=== PATIENT | male | born 1940 | race Caucasian/White ===

== ENCOUNTER 2017-11-15 14:39 | Inpatient (IN) ==
[2017-11-15] MEDS ORDERED: ACETAMINOPHEN 325 MG TABLET PO PRN (17:48)
[2017-11-15] MEDS: CLINDAMYCIN INJ 300 MG in PREMIX 1 EACH IV SCH (18:27)
[2017-11-15 18:35] LABS: Basophils % 0.4 % (0.0-0.8); Eosinophils # 0.3 10*3/uL (0.0-0.87); Eosinophils % 3.9 % (0.00-10.9); Hematocrit 34.5 VOL% (42.0-52.0); Hemoglobin 11.4 GM/DL (14.0-18.0); Immature Granulocytes % 0.4 %; Immature Granulocytes Absolute 0.03 #; Lymphocytes # 1.6 10*3/uL (1.4-4.0); Lymphocytes % 22.4 % (21.2-54.2); Mean Corpuscular Hemoglobin 37 PG (27-34); Mean Corpuscular Volume 110.6 FL (87-102); Mean Platelet Volume 11.3 FL (9.6-12.0); Monocytes # 0.4 10*3/uL (0.11-0.8); Monocytes % 6.2 % (1.7-12.7); Neutrophils # 4.6 10*3/uL (1.4-7.4); Neutrophils % 66.7 % (38.7-73.9); Red Blood Count 3.12 MC/CUMM (3.8-5.5); Red Cell Distribution Width 13.8 % (9.3-17.3); White Blood Count 6.9 T/CUMM (4-12)
[2017-11-15 18:47] LABS: Platelet Count 71 T/CUMM (130-400)
[2017-11-15 18:57] LABS: Calcium 8.5 MG/DL (8.5-10.1); Osmolality,Calculated 288.7 MOS/KG (273-304); Potassium 4.2 MMOL/L (3.5-5.1)
[2017-11-15 19:10] LABS: Alanine Aminotransferase 62 U/L (16-61); Albumin 3.1 G/DL (3.4-5.0); Alkaline Phosphatase 40 U/L (45-117); Aspartate Amino Transferase 49 U/L (0-37); Bilirubin,Direct < 0.100 MG/DL (0.0-0.20); Bilirubin,Indirect 0.3 MG/DL (0.0-1.0); Total Protein 5.9 G/DL (6.4-8.3)
[2017-11-15] MEDS ORDERED: BRIMONIDINE 0.2% OPH SOLN 5 ML BOTTLE BOTH EYES SCH (21:00)
[2017-11-15] MEDS: DOCUSATE SODIUM 100 MG CAPSULE PO SCH (21:27)
[2017-11-16] MEDS: CLINDAMYCIN INJ 300 MG in PREMIX 1 EACH IV SCH ×3 (00:17→12:31)
[2017-11-16 04:53] LABS: Apearance,Urine CLEAR (Clear); Bacteria,Urine Occasional /HPF (Few); Bilirubin,Urine Negative (Negative); Blood, Urine Small mg/dL (Negative); Glucose,Urine (UA) Negative (Negative); Ketones,Urine Negative (Negative); Mucus,Urine Occasional /LPF (Occasional); Nitrite,Urine Negative (Negative); Protein,Urine Negative; RBC,Urine 4 /HPF (0-4); Squamous Epithelial Cell,Urine Occasional /HPF (0-10); Urine Color Straw (Yellow); Urine Specific Gravity 1.012 (1.001-1.035); Urine Urobilinogen < 2.0 EU/DL (0.2-1.0); WBC,Urine 17 /HPF (0-6)
[2017-11-16 05:18] LABS: Basophils % 0.5 % (0.0-0.8); Eosinophils # 0.3 10*3/uL (0.0-0.87); Eosinophils % 4.7 % (0.00-10.9); Hematocrit 31.6 VOL% (42.0-52.0); Hemoglobin 10.7 GM/DL (14.0-18.0); Immature Granulocytes % 0.5 %; Immature Granulocytes Absolute 0.03 #; Lymphocytes # 1.5 10*3/uL (1.4-4.0); Lymphocytes % 25.3 % (21.2-54.2); Mean Corpuscular HGB Conc 33.9 GM/DL (32-36); Mean Corpuscular Hemoglobin 37 PG (27-34); Mean Corpuscular Volume 108.6 FL (87-102); Mean Platelet Volume 11.6 FL (9.6-12.0); Monocytes # 0.4 10*3/uL (0.11-0.8); Monocytes % 6.2 % (1.7-12.7); Neutrophils # 3.8 10*3/uL (1.4-7.4); Neutrophils % 62.8 % (38.7-73.9); Red Blood Count 2.91 MC/CUMM (3.8-5.5); Red Cell Distribution Width 13.5 % (9.3-17.3)
[2017-11-16 05:23] LABS: Platelet Count 58 T/CUMM (130-400)
[2017-11-16 05:29] LABS: INR 1.1; PT Patient Result 11.2 SECS
[2017-11-16 05:48] LABS: Hypochromasia 1+; Ovalocytes Slight; Platelet Estimate Decreased
[2017-11-16 05:55] LABS: Osmolality,Calculated 289.7 MOS/KG (273-304); Potassium 3.8 MMOL/L (3.5-5.1); Risk Ratio 4.64; Thyroid Stimulating Hormone 9.47 uIU/ml (0.358-3.74); VLDL CHOLESTEROL 39.2 MG/DL
[2017-11-16] MEDS ORDERED: LIDOCAINE 1%/EPI INJ 20 ML VIAL ONE (08:35)
[2017-11-16] MEDS ORDERED: BUPIVACAINE MPF 0.25% /EPI 30 ML VIAL ONE (08:35)
[2017-11-16] MEDS: PROPRANOLOL 20 MG TABLET PO SCH (08:50)
[2017-11-16] MEDS: predniSONE 5 MG TABLET PO SCH (08:50)
[2017-11-16] MEDS: PANTOPRAZOLE 40 MG TABLET PO SCH (08:50)
[2017-11-16] MEDS: FOLIC ACID 1 MG TABLET PO SCH (08:50)
[2017-11-16] MEDS: DOCUSATE SODIUM 100 MG CAPSULE PO SCH ×2 (08:50→21:26)
[2017-11-16] MEDS ORDERED: PANTOPRAZOLE 40 MG TABLET PO SCH (09:00)
[2017-11-16] MEDS ORDERED: MIDAZOLAM 2 MG/2 ML VIAL ONE (09:27)
[2017-11-16] MEDS ORDERED: PROPOFOL 200 MG/20 ML VIAL IV ONE (09:27)
[2017-11-16] MEDS ORDERED: fentaNYL 100 MCG/2 ML VIAL ONE (09:27)
[2017-11-16] MEDS ORDERED: LABETALOL 20 MG/4 ML SYRINGE IV ONE (09:27)
[2017-11-16] MEDS ORDERED: MAGNESIUM SULF RIDER 2 GM in PREMIX 1 EACH IV ONE (15:14)
[2017-11-16] MEDS: VANCOMYCIN INJ 1,000 MG in SODIUM CHLORIDE 0.9% 250 ML IV SCH (18:32)
[2017-11-17 05:48] LABS: Basophils % 0.5 % (0.0-0.8); Eosinophils # 0.2 10*3/uL (0.0-0.87); Eosinophils % 5.7 % (0.00-10.9); Hemoglobin 11.3 GM/DL (14.0-18.0); Immature Granulocytes Absolute 0.04 #; Lymphocytes # 1.3 10*3/uL (1.4-4.0); Lymphocytes % 32.7 % (21.2-54.2); Mean Corpuscular HGB Conc 33.2 GM/DL (32-36); Mean Corpuscular Hemoglobin 36 PG (27-34); Monocytes # 0.3 10*3/uL (0.11-0.8); Monocytes % 7.7 % (1.7-12.7); Neutrophils # 2.1 10*3/uL (1.4-7.4); Neutrophils % 52.4 % (38.7-73.9); Platelet Count 59 T/CUMM (130-400); Red Blood Count 3.12 MC/CUMM (3.8-5.5); Red Cell Distribution Width 13.6 % (9.3-17.3)
[2017-11-17 06:18] LABS: Calcium 7.9 MG/DL (8.5-10.1); Osmolality,Calculated 287.8 MOS/KG (273-304); Potassium 4.4 MMOL/L (3.5-5.1)
[2017-11-17] MEDS: VANCOMYCIN INJ 1,000 MG in SODIUM CHLORIDE 0.9% 250 ML IV SCH (06:30)
[2017-11-17 08:01] LABS: Hypochromasia 1+; Macrocytosis 1+; Polychromasia Slight
[2017-11-17] MEDS ORDERED: BACITRACIN OINT 0.9 GM PACK TOP SCH (09:00)
[2017-11-17] MEDS: predniSONE 5 MG TABLET PO SCH (09:01)
[2017-11-17] MEDS: DOCUSATE SODIUM 100 MG CAPSULE PO SCH (09:01)
[2017-11-17] MEDS: PROPRANOLOL 20 MG TABLET PO SCH (09:01)
[2017-11-17] MEDS: PANTOPRAZOLE 40 MG TABLET PO SCH (09:01)
[2017-11-17] MEDS: FOLIC ACID 1 MG TABLET PO SCH (09:01)
[2017-11-17 11:57] VITALS: BP 176/92
[2017-11-21] MEDS ORDERED: METHOTREXATE 2.5 MG TABLET PO SCH (09:00)
== END 2017-11-17 12:52 | disposition home or self-care (01) | DRG 603 ==
LOC: N.2E 14:57 → SUATTDRO 14:57
PROVIDERS: ADMIT Internal Medicine; ATTEND Internal Medicine

== ENCOUNTER 2019-05-04 20:31 | Inpatient (IN) ==
[2019-05-04] MEDS ORDERED: SODIUM CHLORIDE 0.9% 500 ML IV STA (21:05)
[2019-05-04] MEDS ORDERED: ACETAMINOPHEN 500 MG TABLET ONE (21:07)
[2019-05-04 21:19] LABS: Basophils % 0.1 % (0.0-0.8); Eosinophils % 0.5 % (0.00-10.9); Hematocrit 34.9 VOL% (42.0-52.0); Hemoglobin 11.8 GM/DL (14.0-18.0); Immature Granulocytes % 0.5 %; Immature Granulocytes Absolute 0.04 #; Lymphocytes # 0.7 10*3/uL (1.4-4.0); Lymphocytes % 8.4 % (21.2-54.2); Mean Corpuscular HGB Conc 33.8 GM/DL (32-36); Mean Corpuscular Volume 106.4 FL (87-102); Mean Platelet Volume 11.8 FL (9.6-12.0); Monocytes % 7.8 % (1.7-12.7); Neutrophils % 82.7 % (38.7-73.9); Platelet Count 82 T/CUMM (130-400); Red Blood Count 3.28 MC/CUMM (3.8-5.5); Red Cell Distribution Width 12.4 % (9.3-17.3); White Blood Count 8.4 T/CUMM (4-12)
[2019-05-04 21:25] LABS: PT Patient Result 11.2 SECS (9.6-12.2)
[2019-05-04 21:32] LABS: Alanine Aminotransferase 23 U/L (16-61); Albumin 3.3 G/DL (3.4-5.0); Alkaline Phosphatase 43 U/L (45-117); Aspartate Amino Transferase 33 U/L (0-37); Blood Urea Nitrogen 23 MG/DL (7-18); Calcium 7.9 MG/DL (8.5-10.1); Estimated Glom Filtration Rate 37 ML/MIN; Glucose 165 MG/DL (74-106); Osmolality,Calculated 277.1 MOS/KG (273-304); Total Protein 6.9 G/DL (6.4-8.3)
[2019-05-04] MEDS ORDERED: ACETAMINOPHEN 500 MG TABLET PO STA (21:48)
[2019-05-04 22:32] LABS: Apearance,Urine CLEAR (Clear); Bilirubin,Urine Negative (Negative); Blood, Urine Negative (Negative); Glucose,Urine (UA) Negative (Negative); Ketones,Urine Negative (Negative); Mucus,Urine Occasional /LPF (Occasional); Nitrite,Urine Negative (Negative); Protein,Urine Negative; RBC,Urine 7 /HPF (0-4); Urine Color Yellow (Yellow); Urine Urobilinogen < 2.0 EU/DL (0.2-1.0); WBC,Urine 44 /HPF (0-6)
[2019-05-04] MEDS ORDERED: PIPERACILLIN/TAZOBACTAM 3,375 MG in SODIUM CHLORIDE 0.9% 100 ML IV STA (22:50)
[2019-05-05] MEDS ORDERED: DOCUSATE SODIUM 100 MG CAPSULE PO PRN (02:18)
[2019-05-05] MEDS: SODIUM CHLORIDE 0.9% 1,000 ML IV SCH ×2 (02:53→16:20)
[2019-05-05 03:01] LABS: Basophils % 0.1 % (0.0-0.8); Eosinophils % 0.2 % (0.00-10.9); Hematocrit 29.9 VOL% (42.0-52.0); Hemoglobin 9.8 GM/DL (14.0-18.0); Immature Granulocytes % 0.4 %; Immature Granulocytes Absolute 0.04 #; Lymphocytes # 1.3 10*3/uL (1.4-4.0); Lymphocytes % 12.9 % (21.2-54.2); Mean Corpuscular HGB Conc 32.8 GM/DL (32-36); Mean Corpuscular Volume 107.2 FL (87-102); Mean Platelet Volume 11.2 FL (9.6-12.0); Monocytes % 10.4 % (1.7-12.7); Platelet Count 72 T/CUMM (130-400); Red Blood Count 2.79 MC/CUMM (3.8-5.5); Red Cell Distribution Width 12.4 % (9.3-17.3); White Blood Count 9.7 T/CUMM (4-12)
[2019-05-05 03:20] LABS: Calcium 7.5 MG/DL (8.5-10.1); Osmolality,Calculated 284.4 MOS/KG (273-304)
[2019-05-05] MEDS ORDERED: cefTRIAXone 1,000 MG in SYRINGE 1 EACH IV SCH (06:00)
[2019-05-05] MEDS ORDERED: PROPRANOLOL 10 MG TABLET PO SCH (09:00)
[2019-05-05] MEDS: ONDANSETRON 4 MG/2 ML VIAL IV PRN (09:13)
[2019-05-05] MEDS: CHOLECALCIFEROL 1,000 UNIT TABLET PO SCH (09:13)
[2019-05-05] MEDS: CALCIUM (CARBONATE)/VITAMIN D 600 MG-400 UNIT TABLET PO SCH ×2 (09:13→20:55)
[2019-05-06] MEDS: ACETAMINOPHEN 325 MG TABLET PO PRN (00:01)
[2019-05-06 05:02] LABS: Basophils % 0.2 % (0.0-0.8); Eosinophils # 0.1 10*3/uL (0.0-0.87); Eosinophils % 2.4 % (0.00-10.9); Hematocrit 26.5 VOL% (42.0-52.0); Hemoglobin 8.8 GM/DL (14.0-18.0); Immature Granulocytes % 0.5 %; Immature Granulocytes Absolute 0.03 #; Lymphocytes # 1.2 10*3/uL (1.4-4.0); Lymphocytes % 20.1 % (21.2-54.2); Mean Corpuscular HGB Conc 33.2 GM/DL (32-36); Mean Corpuscular Volume 106.4 FL (87-102); Mean Platelet Volume 12.1 FL (9.6-12.0); Monocytes % 9.8 % (1.7-12.7); Platelet Count 62 T/CUMM (130-400); Red Blood Count 2.49 MC/CUMM (3.8-5.5); Red Cell Distribution Width 12.5 % (9.3-17.3); White Blood Count 5.9 T/CUMM (4-12)
[2019-05-06 05:23] LABS: Calcium 7.9 MG/DL (8.5-10.1); Osmolality,Calculated 279.7 MOS/KG (273-304)
[2019-05-06 05:33] LABS: Band Neutrophils 3 % (0-10); Eosinophils 1 % (0-10); Lymphocytes 28 % (20-55); Segmented Neutrophils 62 % (50-85); Total Cells Counted 100
[2019-05-06 05:34] LABS: Platelet Estimate Decreased
[2019-05-06] MEDS: SODIUM CHLORIDE 0.9% 1,000 ML IV SCH ×2 (05:42→21:08)
[2019-05-06] MEDS: ONDANSETRON 4 MG/2 ML VIAL IV PRN ×2 (08:03→12:31)
[2019-05-06] MEDS: CALCIUM (CARBONATE)/VITAMIN D 600 MG-400 UNIT TABLET PO SCH ×2 (09:14→20:50)
[2019-05-06] MEDS: PROPRANOLOL 10 MG TABLET PO SCH (09:14)
[2019-05-06] MEDS: cefTRIAXone 2,000 MG in SYRINGE 1 EACH IV SCH (09:15)
[2019-05-06] MEDS: CHOLECALCIFEROL 1,000 UNIT TABLET PO SCH (09:15)
[2019-05-06] MEDS ORDERED: VANCOMYCIN INJ 1,000 MG in SODIUM CHLORIDE 0.9% 250 ML IV SCH (09:30)
[2019-05-07 05:26] LABS: Basophils % 0.2 % (0.0-0.8); Eosinophils # 0.1 10*3/uL (0.0-0.87); Hematocrit 26.7 VOL% (42.0-52.0); Hemoglobin 8.7 GM/DL (14.0-18.0); Immature Granulocytes % 0.4 %; Immature Granulocytes Absolute 0.02 #; Lymphocytes # 1.3 10*3/uL (1.4-4.0); Lymphocytes % 25.6 % (21.2-54.2); Mean Corpuscular HGB Conc 32.6 GM/DL (32-36); Mean Platelet Volume 11.6 FL (9.6-12.0); Monocytes % 11.9 % (1.7-12.7); Neutrophils % 59.9 % (38.7-73.9); Platelet Count 72 T/CUMM (130-400); Red Blood Count 2.52 MC/CUMM (3.8-5.5); Red Cell Distribution Width 12.3 % (9.3-17.3); White Blood Count 5.1 T/CUMM (4-12)
[2019-05-07 05:47] LABS: Calcium 7.9 MG/DL (8.5-10.1); Osmolality,Calculated 280.3 MOS/KG (273-304)
[2019-05-07] MEDS: ONDANSETRON 4 MG/2 ML VIAL IV PRN ×3 (07:28→21:28)
[2019-05-07] MEDS: CHOLECALCIFEROL 1,000 UNIT TABLET PO SCH (08:45)
[2019-05-07] MEDS: PROPRANOLOL 10 MG TABLET PO SCH (08:46)
[2019-05-07] MEDS: cefTRIAXone 2,000 MG in SYRINGE 1 EACH IV SCH (08:46)
[2019-05-07] MEDS ORDERED: MORPHINE 4 MG/1 ML VIAL IV ONE (11:04)
[2019-05-07] MEDS ORDERED: ONDANSETRON 4 MG/2 ML VIAL IV ONE (11:06)
[2019-05-07] MEDS: CALCIUM (CARBONATE)/VITAMIN D 600 MG-400 UNIT TABLET PO SCH ×2 (11:24→20:45)
[2019-05-07] MEDS: SODIUM CHLORIDE 0.9% 1,000 ML IV SCH (11:25)
[2019-05-07] MEDS: POLYETHYLENE GLYCOL POWDER 17 GM PACK PO SCH (11:25)
[2019-05-07] MEDS: DOCUSATE SODIUM 100 MG CAPSULE PO SCH (20:45)
[2019-05-08] MEDS: ONDANSETRON 4 MG/2 ML VIAL IV PRN ×5 (03:30→23:02)
[2019-05-08 05:54] LABS: Basophils % 0.3 % (0.0-0.8); Eosinophils # 0.3 10*3/uL (0.0-0.87); Eosinophils % 4.6 % (0.00-10.9); Hematocrit 27.9 VOL% (42.0-52.0); Hemoglobin 9.1 GM/DL (14.0-18.0); Immature Granulocytes % 0.5 %; Immature Granulocytes Absolute 0.03 #; Lymphocytes # 1.6 10*3/uL (1.4-4.0); Lymphocytes % 26.9 % (21.2-54.2); Mean Corpuscular HGB Conc 32.6 GM/DL (32-36); Mean Corpuscular Volume 105.7 FL (87-102); Mean Platelet Volume 11.9 FL (9.6-12.0); Monocytes % 10.7 % (1.7-12.7); Platelet Count 84 T/CUMM (130-400); Red Blood Count 2.64 MC/CUMM (3.8-5.5); Red Cell Distribution Width 12.5 % (9.3-17.3); White Blood Count 5.8 T/CUMM (4-12)
[2019-05-08 06:24] LABS: Platelet Estimate Decreased
[2019-05-08] MEDS: CALCIUM (CARBONATE)/VITAMIN D 600 MG-400 UNIT TABLET PO SCH ×2 (08:52→21:08)
[2019-05-08] MEDS: DOCUSATE SODIUM 100 MG CAPSULE PO SCH ×2 (08:52→21:08)
[2019-05-08] MEDS: CHOLECALCIFEROL 1,000 UNIT TABLET PO SCH (08:52)
[2019-05-08] MEDS: PROPRANOLOL 10 MG TABLET PO SCH (08:52)
[2019-05-08] MEDS: POLYETHYLENE GLYCOL POWDER 17 GM PACK PO SCH (08:52)
[2019-05-08] MEDS: cefTRIAXone 2,000 MG in SYRINGE 1 EACH IV SCH (10:08)
[2019-05-09] MEDS: ONDANSETRON 4 MG/2 ML VIAL IV PRN ×4 (03:08→16:46)
[2019-05-09 04:59] LABS: Basophils % 0.2 % (0.0-0.8); Eosinophils # 0.2 10*3/uL (0.0-0.87); Eosinophils % 4.7 % (0.00-10.9); Hematocrit 27.2 VOL% (42.0-52.0); Hemoglobin 9.3 GM/DL (14.0-18.0); Immature Granulocytes Absolute 0.05 #; Lymphocytes # 1.4 10*3/uL (1.4-4.0); Lymphocytes % 27.6 % (21.2-54.2); Mean Corpuscular HGB Conc 34.2 GM/DL (32-36); Mean Corpuscular Volume 103.8 FL (87-102); Mean Platelet Volume 11.8 FL (9.6-12.0); Monocytes % 10.8 % (1.7-12.7); Neutrophils % 55.7 % (38.7-73.9); Red Blood Count 2.62 MC/CUMM (3.8-5.5); Red Cell Distribution Width 12.3 % (9.3-17.3); White Blood Count 5.1 T/CUMM (4-12)
[2019-05-09 05:00] LABS: Platelet Count 95 T/CUMM (130-400)
[2019-05-09 05:16] LABS: Eosinophils 5 % (0-10); Hypochromasia 1+; Lymphocytes 28 % (20-55); Ovalocytes Slight; Platelet Estimate Decreased; Segmented Neutrophils 61 % (50-85); Total Cells Counted 100
[2019-05-09 05:29] LABS: Calcium 8.2 MG/DL (8.5-10.1); Osmolality,Calculated 280.4 MOS/KG (273-304)
[2019-05-09] MEDS: cefTRIAXone 2,000 MG in SYRINGE 1 EACH IV SCH (08:01)
[2019-05-09] MEDS: CALCIUM (CARBONATE)/VITAMIN D 600 MG-400 UNIT TABLET PO SCH ×2 (08:02→21:19)
[2019-05-09] MEDS: CHOLECALCIFEROL 1,000 UNIT TABLET PO SCH (08:02)
[2019-05-09] MEDS: DOCUSATE SODIUM 100 MG CAPSULE PO SCH ×2 (08:03→21:19)
[2019-05-09] MEDS: PROPRANOLOL 10 MG TABLET PO SCH (08:03)
[2019-05-09] MEDS: POLYETHYLENE GLYCOL POWDER 17 GM PACK PO SCH (11:45)
[2019-05-10] MEDS: ONDANSETRON 4 MG/2 ML VIAL IV PRN ×2 (02:38→08:31)
[2019-05-10 05:41] LABS: Basophils % 0.3 % (0.0-0.8); Eosinophils # 0.3 10*3/uL (0.0-0.87); Eosinophils % 4.1 % (0.00-10.9); Hematocrit 27.5 VOL% (42.0-52.0); Hemoglobin 9.3 GM/DL (14.0-18.0); Immature Granulocytes % 1.1 %; Immature Granulocytes Absolute 0.07 #; Lymphocytes # 2.2 10*3/uL (1.4-4.0); Lymphocytes % 32.9 % (21.2-54.2); Mean Corpuscular HGB Conc 33.8 GM/DL (32-36); Mean Platelet Volume 11.7 FL (9.6-12.0); Monocytes % 9.8 % (1.7-12.7); Neutrophils % 51.8 % (38.7-73.9); Platelet Count 104 T/CUMM (130-400); Red Blood Count 2.67 MC/CUMM (3.8-5.5); Red Cell Distribution Width 12.2 % (9.3-17.3); White Blood Count 6.6 T/CUMM (4-12)
[2019-05-10 05:46] LABS: INR 1.1; PT Patient Result 12.1 SECS (9.6-12.2)
[2019-05-10 06:02] LABS: Eosinophils 4 % (0-10); Lymphocytes 24 % (20-55); Platelet Estimate Decreased; Segmented Neutrophils 65 % (50-85); Total Cells Counted 100
[2019-05-10 06:15] LABS: Calcium 8.6 MG/DL (8.5-10.1); Osmolality,Calculated 279.3 MOS/KG (273-304)
[2019-05-10] MEDS: CALCIUM (CARBONATE)/VITAMIN D 600 MG-400 UNIT TABLET PO SCH ×2 (08:31→21:39)
[2019-05-10] MEDS: CHOLECALCIFEROL 1,000 UNIT TABLET PO SCH (08:31)
[2019-05-10] MEDS: cefTRIAXone 2,000 MG in SYRINGE 1 EACH IV SCH (08:31)
[2019-05-10] MEDS: PROPRANOLOL 10 MG TABLET PO SCH (08:31)
[2019-05-10] MEDS: DOCUSATE SODIUM 100 MG CAPSULE PO SCH ×2 (08:31→23:35)
[2019-05-10] MEDS: POLYETHYLENE GLYCOL POWDER 17 GM PACK PO SCH (08:40)
[2019-05-10] MEDS: amLODIPine 5 MG TABLET PO SCH (10:35)
[2019-05-10] MEDS: LIDOCAINE 5% PATCH TRANSDERM SCH (12:48)
[2019-05-10] MEDS: fentaNYL 12 MCG/HR PATCH TRANSDERM SCH (12:48)
[2019-05-10] MEDS: ALUMINUM/MAGNES/SIMETH MAX STR 30 ML UDCUP PO SCH ×4 (12:48→23:51)
[2019-05-11] MEDS: LIDOCAINE 5% PATCH TRANSDERM SCH (10:21)
[2019-05-11] MEDS: cefTRIAXone 2,000 MG in SYRINGE 1 EACH IV SCH (10:23)
[2019-05-11] MEDS ORDERED: PROPOFOL 200 MG/20 ML VIAL IV ONE (14:16)
[2019-05-11] MEDS ORDERED: ETOMIDATE 40 MG/20 ML VIAL IV ONE (14:17)
[2019-05-11] MEDS: CHOLECALCIFEROL 1,000 UNIT TABLET PO SCH (15:29)
[2019-05-11] MEDS: CALCIUM (CARBONATE)/VITAMIN D 600 MG-400 UNIT TABLET PO SCH ×2 (15:29→21:40)
[2019-05-11] MEDS: amLODIPine 5 MG TABLET PO SCH (15:29)
[2019-05-11] MEDS: PROPRANOLOL 10 MG TABLET PO SCH (15:29)
[2019-05-11] MEDS ORDERED: SODIUM CHLORIDE 0.9% 1,000 ML IV SCH (15:30)
[2019-05-11] MEDS: DOCUSATE SODIUM 100 MG CAPSULE PO SCH (15:30)
[2019-05-11] MEDS: POLYETHYLENE GLYCOL POWDER 17 GM PACK PO SCH (15:30)
[2019-05-12] MEDS: CHOLECALCIFEROL 1,000 UNIT TABLET PO SCH (08:53)
[2019-05-12] MEDS: PROPRANOLOL 10 MG TABLET PO SCH (08:53)
[2019-05-12] MEDS: amLODIPine 5 MG TABLET PO SCH (08:53)
[2019-05-12] MEDS: CALCIUM (CARBONATE)/VITAMIN D 600 MG-400 UNIT TABLET PO SCH ×2 (08:53→20:58)
[2019-05-12] MEDS: cefTRIAXone 2,000 MG in SYRINGE 1 EACH IV SCH (08:54)
[2019-05-12] MEDS: LIDOCAINE 5% PATCH TRANSDERM SCH (08:57)
[2019-05-12] MEDS: POLYETHYLENE GLYCOL POWDER 17 GM PACK PO SCH (09:01)
[2019-05-12] MEDS: DOCUSATE SODIUM 100 MG CAPSULE PO SCH ×3 (09:01→20:59)
[2019-05-13] MEDS: ACETAMINOPHEN 325 MG TABLET PO PRN (05:26)
[2019-05-13 06:36] LABS: Basophils % 0.3 % (0.0-0.8); Eosinophils # 0.3 10*3/uL (0.0-0.87); Hematocrit 30.5 VOL% (42.0-52.0); Hemoglobin 10.2 GM/DL (14.0-18.0); Immature Granulocytes % 0.8 %; Immature Granulocytes Absolute 0.05 #; Lymphocytes # 2.7 10*3/uL (1.4-4.0); Lymphocytes % 41.5 % (21.2-54.2); Mean Corpuscular HGB Conc 33.4 GM/DL (32-36); Mean Corpuscular Volume 104.5 FL (87-102); Mean Platelet Volume 11.4 FL (9.6-12.0); Monocytes % 10.5 % (1.7-12.7); Neutrophils % 42.9 % (38.7-73.9); Platelet Count 113 T/CUMM (130-400); Red Blood Count 2.92 MC/CUMM (3.8-5.5); White Blood Count 6.6 T/CUMM (4-12)
[2019-05-13 06:57] LABS: Calcium 8.5 MG/DL (8.5-10.1); Osmolality,Calculated 273.8 MOS/KG (273-304)
[2019-05-13 07:02] LABS: Anisocytosis 2+; Band Neutrophils 1 % (0-10); Eosinophils 5 % (0-10); Lymphocytes 42 % (20-55); Macrocytosis 2+; Nucleated Red Blood Cells 0 (0-5); Platelet Estimate Decreased; Polychromasia 1+; Segmented Neutrophils 42 % (50-85); Total Cells Counted 100
[2019-05-13] MEDS: cefTRIAXone 2,000 MG in SYRINGE 1 EACH IV SCH (08:37)
[2019-05-13] MEDS: LIDOCAINE 5% PATCH TRANSDERM SCH (08:38)
[2019-05-13] MEDS: amLODIPine 5 MG TABLET PO SCH (08:38)
[2019-05-13] MEDS: CHOLECALCIFEROL 1,000 UNIT TABLET PO SCH (08:38)
[2019-05-13] MEDS: CALCIUM (CARBONATE)/VITAMIN D 600 MG-400 UNIT TABLET PO SCH (08:38)
[2019-05-13] MEDS: PROPRANOLOL 10 MG TABLET PO SCH (08:38)
[2019-05-13] MEDS: POLYETHYLENE GLYCOL POWDER 17 GM PACK PO SCH (08:39)
[2019-05-13] MEDS: DOCUSATE SODIUM 100 MG CAPSULE PO SCH (08:39)
[2019-05-13 11:48] VITALS: BP 130/79
[2019-05-13] MEDS: fentaNYL 12 MCG/HR PATCH TRANSDERM SCH (11:48)
== END 2019-05-13 13:49 | disposition home health service (06) | DRG 871 ==
LOC: EDBD → EDUNIT# → N.ED 20:31 → N.EDINP 05-05 00:18 → SUATTDRO 05-05 00:18 → N.2E 05-05 00:59
PROVIDERS: ADMIT Internal Medicine; ATTEND Internal Medicine

== ENCOUNTER 2021-06-10 16:16 | Inpatient (IN) ==
[2021-06-10] MEDS ORDERED: SODIUM CHLORIDE 0.9% 1,000 ML IV STA (17:23)
[2021-06-10 18:04] LABS: Basophils % 0.2 % (0.0-0.8); Eosinophils # 0.1 10*3/uL (0.0-0.87); Eosinophils % 0.9 % (0.00-10.9); Hematocrit 22.7 VOL% (42.0-52.0); Hemoglobin 7.1 GM/DL (14.0-18.0); Immature Granulocytes % 0.9 %; Immature Granulocytes Absolute 0.06 #; Lymphocytes % 15.2 % (21.2-54.2); Mean Corpuscular HGB Conc 31.3 GM/DL (32-36); Mean Corpuscular Volume 105.6 FL (87-102); Mean Platelet Volume 11.9 FL (9.6-12.0); Monocytes % 6.7 % (1.7-12.7); Neutrophils % 76.1 % (38.7-73.9); Platelet Count 91 T/CUMM (130-400); Red Blood Count 2.15 MC/CUMM (3.8-5.5); Red Cell Distribution Width 14.9 % (9.3-17.3); White Blood Count 6.5 T/CUMM (4-12)
[2021-06-10 18:19] LABS: Albumin 2.7 G/DL (3.4-5.0); Bilirubin,Total 0.4 MG/DL (0.20-1.00); Calcium 8.2 MG/DL (8.5-10.1); Osmolality,Calculated 277.8 MOS/KG (273-304); Potassium 4.2 MMOL/L (3.5-5.1); Total Protein 6.5 G/DL (6.4-8.2)
[2021-06-10 19:28] LABS: Bilirubin,Urine Negative (Negative); Blood, Urine Negative (Negative); Glucose,Urine (UA) Negative (Negative); Ketones,Urine Negative (Negative); Mucus,Urine Occasional /LPF (Occasional); Nitrite,Urine Negative (Negative); Protein,Urine Negative; RBC,Urine 6 /HPF (0-4); Squamous Epithelial Cell,Urine Occasional /HPF (0-10); Urine Appearance CLEAR (Clear); Urine Color Yellow (Yellow); Urine Urobilinogen < 2.0 EU/DL (<2.0)
[2021-06-10] MEDS ORDERED: AZITHROMYCIN INJ 500 MG in SODIUM CHLORIDE 0.9% 250 ML IV ONE (19:52)
[2021-06-10] MEDS ORDERED: SODIUM CHLORIDE 0.9% 1,000 ML IV PRN (19:59)
[2021-06-10] MEDS ORDERED: GLUCAGON 1 MG VIAL IM PRN (20:07)
[2021-06-10] MEDS ORDERED: DEXTROSE 10% 25 GM/250 ML BAG IV PRN (20:10)
[2021-06-10 22:05] LABS: Basophils % 0.2 % (0.0-0.8); Eosinophils % 0.9 % (0.00-10.9); Hematocrit 29.3 VOL% (42.0-52.0); Immature Granulocytes % 0.6 %; Immature Granulocytes Absolute 0.03 #; Lymphocytes # 1.1 10*3/uL (1.4-4.0); Lymphocytes % 22.7 % (21.2-54.2); Mean Corpuscular HGB Conc 30.7 GM/DL (32-36); Mean Platelet Volume 11.6 FL (9.6-12.0); Monocytes % 7.3 % (1.7-12.7); Neutrophils % 68.3 % (38.7-73.9); Platelet Count 69 T/CUMM (130-400); Red Blood Count 2.79 MC/CUMM (3.8-5.5); Red Cell Distribution Width 14.8 % (9.3-17.3); White Blood Count 4.6 T/CUMM (4-12)
[2021-06-10 22:22] LABS: Albumin 2.5 G/DL (3.4-5.0); Bilirubin,Total 0.4 MG/DL (0.20-1.00); Calcium 7.5 MG/DL (8.5-10.1); Osmolality,Calculated 275.8 MOS/KG (273-304); Potassium 4.3 MMOL/L (3.5-5.1)
[2021-06-10 22:26] LABS: Folate 22.42 NG/ML (5.38-24.0); Vitamin B12 892 PG/ML (211-911)
[2021-06-10 22:46] LABS: Polychromasia 1+
[2021-06-10 22:47] LABS: Anisocytosis 1+; Macrocytosis 1+; Platelet Estimate Decreased
[2021-06-10 23:16] LABS: Sedimentation Rate-Westergren 94 MM/HR (0-20)
[2021-06-10] MEDS: FAMOTIDINE 20 MG TABLET PO SCH (23:54)
[2021-06-10] MEDS: ASCORBIC ACID 500 MG TABLET PO SCH (23:54)
[2021-06-10] MEDS: TERAZOSIN 1 MG CAPSULE PO SCH (23:54)
[2021-06-11] MEDS: SODIUM CHLORIDE 0.9% 1,000 ML IV SCH
[2021-06-11] MEDS: BRIMONIDINE 0.2% OPH SOLN 5 ML BOTTLE BOTH EYES SCH ×3 (01:01→21:46)
[2021-06-11] MEDS: methylPREDNISolone SOD SUC 40 MG/1 ML VIAL IV SCH ×5 (05:00→23:13)
[2021-06-11 05:17] LABS: Basophils % 0.3 % (0.0-0.8); Eosinophils % 0.8 % (0.00-10.9); Hematocrit 31.4 VOL% (42.0-52.0); Hemoglobin 9.8 GM/DL (14.0-18.0); Immature Granulocytes % 0.5 %; Immature Granulocytes Absolute 0.02 #; Lymphocytes % 26.5 % (21.2-54.2); Mean Corpuscular HGB Conc 31.2 GM/DL (32-36); Mean Corpuscular Volume 103.3 FL (87-102); Mean Platelet Volume 11.5 FL (9.6-12.0); Monocytes % 6.9 % (1.7-12.7); Platelet Count 64 T/CUMM (130-400); Red Blood Count 3.04 MC/CUMM (3.8-5.5); Red Cell Distribution Width 15.7 % (9.3-17.3); White Blood Count 3.8 T/CUMM (4-12)
[2021-06-11 05:35] LABS: Hypochromia 1+; Microcytosis Slight; Platelet Estimate Decreased
[2021-06-11 05:46] LABS: % Iron Saturation 9.2 % (18-50); Ferritin 146.2 ng/mL (26-388); Free T4 (Free Thyroxine) 1.31 NG/DL (0.76-1.46); Thyroid Stimulating Hormone 0.999 uIU/ml (0.358-3.74)
[2021-06-11 08:18] LABS: Hematocrit 31.7 VOL% (42.0-52.0); Hemoglobin 9.9 GM/DL (14.0-18.0)
[2021-06-11] MEDS ORDERED: CHOLECALCIFEROL 1,000 UNIT TABLET PO SCH (09:00)
[2021-06-11] MEDS: FAMOTIDINE 20 MG TABLET PO SCH ×2 (11:17→21:45)
[2021-06-11] MEDS: cefTRIAXone 1,000 MG in SODIUM CHLORIDE 0.9% 100 ML IV SCH (11:17)
[2021-06-11] MEDS: PANTOPRAZOLE 40 MG VIAL IV SCH ×3 (11:17→21:44)
[2021-06-11] MEDS: PROPRANOLOL 40 MG TABLET PO SCH (11:17)
[2021-06-11] MEDS: ASCORBIC ACID 500 MG TABLET PO SCH ×2 (11:18→21:45)
[2021-06-11] MEDS: CETIRIZINE 10 MG TABLET PO SCH (11:18)
[2021-06-11] MEDS: ZINC GLUCONATE 50 MG TABLET PO SCH (11:18)
[2021-06-11] MEDS: LACTATED RINGERS 1,000 ML IV SCH (13:42)
[2021-06-11 15:41] LABS: Hematocrit 31.1 VOL% (42.0-52.0); Hemoglobin 9.9 GM/DL (14.0-18.0)
[2021-06-11] MEDS ORDERED: INFLUENZA VIRUS VACCINE 0.5 ML SYRINGE IM ONE (16:55)
[2021-06-11] MEDS: IVERMECTIN 3 MG TABLET PO SCH (18:17)
[2021-06-11] MEDS: AZITHROMYCIN INJ 500 MG in SODIUM CHLORIDE 0.9% 250 ML IV SCH (21:44)
[2021-06-11] MEDS: CHOLECALCIFEROL 5,000 UNIT TABLET PO SCH (21:45)
[2021-06-11] MEDS: TERAZOSIN 1 MG CAPSULE PO SCH (21:45)
[2021-06-11] MEDS: APIXABAN 2.5 MG TABLET PO SCH ×2 (21:45→23:13)
[2021-06-11] MEDS: CALCIUM (CARBONATE)/VITAMIN D 600 MG-400 UNIT TABLET PO SCH ×2 (21:45→21:49)
[2021-06-11] MEDS: PRIMIDONE 50 MG TABLET PO SCH (21:46)
[2021-06-12] MEDS: PRIMIDONE 50 MG TABLET PO SCH ×2 (02:16→20:53)
[2021-06-12] MEDS: LACTATED RINGERS 1,000 ML IV SCH ×3 (04:18→16:45)
[2021-06-12 06:05] LABS: Hematocrit 29.3 VOL% (42.0-52.0); Hemoglobin 9.4 GM/DL (14.0-18.0); Immature Granulocytes % 0.3 %; Immature Granulocytes Absolute 0.01 #; Lymphocytes # 0.7 10*3/uL (1.4-4.0); Lymphocytes % 20.5 % (21.2-54.2); Mean Corpuscular HGB Conc 32.1 GM/DL (32-36); Mean Corpuscular Volume 101.4 FL (87-102); Mean Platelet Volume 11.1 FL (9.6-12.0); Monocytes % 2.9 % (1.7-12.7); Neutrophils % 76.3 % (38.7-73.9); Platelet Count 72 T/CUMM (130-400); Red Blood Count 2.89 MC/CUMM (3.8-5.5); Red Cell Distribution Width 15.4 % (9.3-17.3); White Blood Count 3.4 T/CUMM (4-12)
[2021-06-12 06:25] LABS: Albumin 2.1 G/DL (3.4-5.0); Bilirubin,Total 0.8 MG/DL (0.20-1.00); Calcium 7.6 MG/DL (8.5-10.1); Ferritin 135.3 ng/mL (26-388); Osmolality,Calculated 283.4 MOS/KG (273-304); Potassium 4.6 MMOL/L (3.5-5.1); Total Protein 5.6 G/DL (6.4-8.2)
[2021-06-12 06:34] LABS: Lymphocytes 18 % (20-55); Platelet Estimate Decreased; Segmented Neutrophils 79 % (50-85); Total Cells Counted 100
[2021-06-12 06:35] LABS: Hypochromia 1+; Microcytosis 1+
[2021-06-12] MEDS: CALCIUM (CARBONATE)/VITAMIN D 600 MG-400 UNIT TABLET PO SCH ×3 (08:22→20:49)
[2021-06-12] MEDS: methylPREDNISolone SOD SUC 40 MG/1 ML VIAL IV SCH ×3 (08:22→17:50)
[2021-06-12] MEDS: SODIUM CHLORIDE 0.9% 1,000 ML IV SCH (08:23)
[2021-06-12] MEDS: PROPRANOLOL 40 MG TABLET PO SCH (10:46)
[2021-06-12] MEDS: APIXABAN 2.5 MG TABLET PO SCH ×2 (10:46→20:50)
[2021-06-12] MEDS: BRIMONIDINE 0.2% OPH SOLN 5 ML BOTTLE BOTH EYES SCH ×2 (10:46→21:02)
[2021-06-12] MEDS: cefTRIAXone 1,000 MG in SODIUM CHLORIDE 0.9% 100 ML IV SCH (10:47)
[2021-06-12] MEDS: FAMOTIDINE 20 MG TABLET PO SCH ×2 (10:47→20:50)
[2021-06-12] MEDS: PANTOPRAZOLE 40 MG VIAL IV SCH ×2 (10:47→20:49)
[2021-06-12] MEDS: CHOLECALCIFEROL 5,000 UNIT TABLET PO SCH ×2 (10:48→20:50)
[2021-06-12] MEDS: IVERMECTIN 3 MG TABLET PO SCH (10:48)
[2021-06-12] MEDS: ZINC GLUCONATE 50 MG TABLET PO SCH (10:48)
[2021-06-12] MEDS: ASCORBIC ACID 500 MG TABLET PO SCH ×2 (10:48→20:50)
[2021-06-12] MEDS: CETIRIZINE 10 MG TABLET PO SCH (10:48)
[2021-06-12] MEDS ORDERED: methylPREDNISolone SOD SUC 40 MG/1 ML VIAL ONE (16:58)
[2021-06-12] MEDS: TERAZOSIN 1 MG CAPSULE PO SCH (20:49)
[2021-06-12] MEDS: AZITHROMYCIN INJ 500 MG in SODIUM CHLORIDE 0.9% 250 ML IV SCH (20:53)
[2021-06-13] MEDS: LACTATED RINGERS 1,000 ML IV SCH ×3 (02:21→22:14)
[2021-06-13] MEDS: methylPREDNISolone SOD SUC 40 MG/1 ML VIAL IV SCH ×2 (02:22→11:41)
[2021-06-13] MEDS: IVERMECTIN 3 MG TABLET PO SCH (09:11)
[2021-06-13] MEDS: APIXABAN 2.5 MG TABLET PO SCH ×2 (09:12→21:10)
[2021-06-13] MEDS: ZINC GLUCONATE 50 MG TABLET PO SCH (09:12)
[2021-06-13] MEDS: PANTOPRAZOLE 40 MG VIAL IV SCH ×2 (09:12→21:11)
[2021-06-13] MEDS: CHOLECALCIFEROL 5,000 UNIT TABLET PO SCH ×2 (09:12→21:09)
[2021-06-13] MEDS: ASCORBIC ACID 500 MG TABLET PO SCH ×2 (09:12→21:10)
[2021-06-13] MEDS: FAMOTIDINE 20 MG TABLET PO SCH ×2 (09:12→21:10)
[2021-06-13] MEDS: PROPRANOLOL 40 MG TABLET PO SCH (09:12)
[2021-06-13] MEDS: CETIRIZINE 10 MG TABLET PO SCH (09:12)
[2021-06-13] MEDS: cefTRIAXone 1,000 MG in SODIUM CHLORIDE 0.9% 100 ML IV SCH (09:13)
[2021-06-13] MEDS: BRIMONIDINE 0.2% OPH SOLN 5 ML BOTTLE BOTH EYES SCH ×2 (09:14→22:13)
[2021-06-13] MEDS: CALCIUM (CARBONATE)/VITAMIN D 600 MG-400 UNIT TABLET PO SCH ×2 (09:16→21:09)
[2021-06-13 09:26] LABS: Hemoglobin A1 (Alkaline) 97.7 % (96.5-98.5); Hemoglobin A2 (Alkaline) 2.3 % (1.5-3.5)
[2021-06-13] MEDS: PRIMIDONE 50 MG TABLET PO SCH (21:10)
[2021-06-13] MEDS: predniSONE 20 MG TABLET PO SCH (21:10)
[2021-06-13] MEDS: TERAZOSIN 1 MG CAPSULE PO SCH (21:10)
[2021-06-13] MEDS: AZITHROMYCIN INJ 500 MG in SODIUM CHLORIDE 0.9% 250 ML IV SCH (21:11)
[2021-06-14] MEDS: LACTATED RINGERS 1,000 ML IV SCH (07:26)
[2021-06-14 09:27] VITALS: BP 139/83
[2021-06-14] MEDS: CALCIUM (CARBONATE)/VITAMIN D 600 MG-400 UNIT TABLET PO SCH (09:50)
[2021-06-14] MEDS: PROPRANOLOL 40 MG TABLET PO SCH (09:50)
[2021-06-14] MEDS: CETIRIZINE 10 MG TABLET PO SCH (09:50)
[2021-06-14] MEDS: predniSONE 20 MG TABLET PO SCH ×2 (09:50→17:07)
[2021-06-14] MEDS: CHOLECALCIFEROL 5,000 UNIT TABLET PO SCH (09:50)
[2021-06-14] MEDS: BRIMONIDINE 0.2% OPH SOLN 5 ML BOTTLE BOTH EYES SCH (09:50)
[2021-06-14] MEDS: ZINC GLUCONATE 50 MG TABLET PO SCH (09:50)
[2021-06-14] MEDS: FAMOTIDINE 20 MG TABLET PO SCH (09:50)
[2021-06-14] MEDS: IVERMECTIN 3 MG TABLET PO SCH (09:51)
[2021-06-14] MEDS: ASCORBIC ACID 500 MG TABLET PO SCH (09:51)
[2021-06-14] MEDS: cefTRIAXone 1,000 MG in SODIUM CHLORIDE 0.9% 100 ML IV SCH (09:51)
[2021-06-14] MEDS: PANTOPRAZOLE 40 MG VIAL IV SCH (09:51)
[2021-06-14] MEDS: APIXABAN 2.5 MG TABLET PO SCH (09:51)
== END 2021-06-14 16:55 | disposition home or self-care (01) | DRG 177 ==
LOC: EDBD → EDUNIT# → N.ED 16:16 → N.EDINP 20:06 → N.3E 06-11 16:05
PROVIDERS: ADMIT Internal Medicine; ATTEND Internal Medicine